=== PATIENT | female | born 1995 | race African-American/Black ===

== ENCOUNTER → 2020-07-04 | Outpatient (CLI) | payer OTHER ==
[~2020-07-04] MED LIST: MACROBID 100 M100 MG PO; OMNICEF 300 MG300 MG PO; ZOFRAN4 MG PO
== END ==
LOC: NM 06-10 13:00
DX: R10.9 Unspecified abdominal pain (principal); R93.2 Abnormal findings on diagnostic imaging of liver and biliary tract
CPT/HCPCS: 78226; A9537